=== PATIENT | female | born 1970 | race Caucasian/White ===

== ENCOUNTER 2023-01-27 07:51 | Day surgery (SDC) | payer OTHER ==
[~2023-01-27] VITALS: Ht 160 cm; Wt 60.3 kg
[~2023-01-27 07:51] MED LIST: CEFAZOLIN SOD 2 GM in D5W 50 ML IV ONE
[2023-01-27 08:40] VITALS: O2SAT 96
[2023-01-27] MEDS ORDERED: LIDOCAINE 2%, 20 ML MDV ONE (10:06)
[2023-01-27] MEDS ORDERED: fentaNYL CITRATE/PF 100 MCG/2 ML AMP ONE (10:06)
[2023-01-27] MEDS ORDERED: SEVOFLURANE 15 MIN GAS INH ONE (10:06)
[2023-01-27] MEDS ORDERED: LR 1,000 ML IV.SOLN IV ONE (10:06)
[2023-01-27] MEDS ORDERED: NS 1000 ML IV.SOLN IV ONE (10:06)
[2023-01-27] MEDS ORDERED: FUROSEMIDE 40 MG/4 ML VIAL ONE (10:06)
[2023-01-27] MEDS ORDERED: PROPOFOL 200MG/ 20ML VIAL (DIPRIVAN) IV ONE (10:06)
[2023-01-27] MEDS ORDERED: NS IRRIG SOLN 1000 ML IR ONE (10:06)
[2023-01-27] MEDS ORDERED: KETOROLAC TROMETHAMINE 30 MG VIAL ONE (10:06)
[2023-01-27] MEDS ORDERED: DEXAMETHASONE SOD PHOSPHATE 4 MG/ML VIAL ONE (10:06)
[2023-01-27] MEDS ORDERED: MIDAZOLAM HCL 2 MG/2 ML VIAL (VERSED) ONE (10:06)
[2023-01-27] MEDS ORDERED: CLINDAMYCIN 2% VAGINAL CREAM VG ONE (10:06)
[2023-01-27] MEDS ORDERED: METOCLOPRAMIDE HCL 10 MG/2 ML VIAL IVP PRN (11:00)
[2023-01-27] MEDS ORDERED: MEPERIDINE HCL/PF 25 MG/ML DISP.SYRIN IVP PRN (11:00)
[2023-01-27] MEDS ORDERED: LR 1,000 ML IV SCH (11:00)
[2023-01-27] MEDS ORDERED: HYDROmorphone 1 MG/ML INJ. CARTRIDGE IVP PRN ×2 (11:00)
[2023-01-27] MEDS ORDERED: ACETAMINOPHEN I.V. 1000 MG 100 ML IV ONE (11:14)
[2023-01-27] MEDS ORDERED: HYDROcodone/ACETAMIN 5-325 MG TAB (NORCO/ VICODIN) PO PRN (12:00)
[2023-01-27] MEDS ORDERED: OXYCODONE/ACETAMINOPHEN 5-325 TABLET PO PRN ×2 (12:00)
[2023-01-27] MEDS ORDERED: ONDANSETRON HCL 4 MG/2 ML VIAL IVP PRN (12:00)
[2023-01-27] MEDS ORDERED: CIPR500T5 PO (12:01)
[2023-01-27] MEDS ORDERED: HYDR-3919 PO (12:01)
[2023-01-27] MEDS ORDERED: IBUP-1969 PO (12:01)
[2023-01-27] MEDS ORDERED: MEPERIDINE HCL/PF 25 MG/ML DISP.SYRIN ONE (12:09)
[2023-01-27 14:23] VITALS: BP_SYST 125; PULSE 73; RESP 17; TEMP 97.8
[2023-01-27] MEDS ORDERED: OXYCODONE/ACETAMINOPHEN 5-325 TABLET ONE (18:58)
[2023-01-27] MEDS ORDERED: CEFAZOLIN 1 GM IVPB PREMIX 0 ML IV ONE (21:01)
[2023-01-27] MEDS: LR 1,000 ML IV SCH (21:11)
[2023-01-27] MEDS: ceFAZolin SODIUM 1 GM in D5W 50 ML IV SCH (21:11)
[2023-01-27] MEDS: SENNOSIDES/DOCUSATE SODIUM 1 TAB TABLET(SENOKOT-S) PO SCH ×2 (21:26→21:27)
[2023-01-27] MEDS: KETOROLAC TROMETHAMINE 30 MG VIAL IVP PRN (21:27)
[2023-01-28] MEDS: ceFAZolin SODIUM 1 GM in D5W 50 ML IV SCH (05:11)
[2023-01-28] MEDS: KETOROLAC TROMETHAMINE 30 MG VIAL IVP PRN (05:46)
[2023-01-28] MEDS: LR 1,000 ML IV SCH (06:36)
[2023-01-28] MEDS ORDERED: DOCUSATE SODIUM 100 MG CAPSULE PO SCH (09:00)
== END 2023-01-28 14:45 | disposition home or self-care (01) ==
LOC: SDS 07:51 → SMU 07:52 → SPU 20:17 → SDS 01-28 14:45
PROVIDERS: ATTEND Specialist
DX: N81.11 Cystocele, midline (principal); N81.6 Rectocele; N39.3 Stress incontinence (female) (male); N36.8 Other specified disorders of urethra; Z90.710 Acquired absence of both cervix and uterus; Z98.890 Other specified postprocedural states; Z79.899 Other long term (current) drug therapy
CPT/HCPCS: 87081; 57288; 57260; 88305; J0690; J1100; J1940; J1885 ×2; J2001; J3465; J2704; J3010; J2175; J7060; J7120; J7030; C1771; J0131